=== PATIENT | female | born 1990 ===

== ENCOUNTER 2019-04-26 07:55 | Inpatient (IN) | payer OTHER | END 2019-04-28 18:50 | disposition home or self-care (01) | LOC: JLDR 07:55 → J3W 19:38 ==

== ENCOUNTER 2022-01-17 03:20 | Inpatient (IN) | payer OTHER ==
[2022-01-17] MEDS: ELECTROLYTE-148 SOLN 1,000 ML IV SCH (03:40)
[2022-01-17] MEDS ORDERED: CITRIC ACID/SODIUM CITRATE 30 ML UNIT-DOSE CUP PO ONE (05:06)
[2022-01-17] MEDS ORDERED: BENZOCAINE 28 GM HEMORRHOIDAL OINTMENT TP PRN (05:07)
[2022-01-17] MEDS ORDERED: BENZOCAINE 20% 57 GM BOTTLE TP PRN (05:07)
[2022-01-17] MEDS ORDERED: ACETAMINOPHEN 325 MG TABLET (FP) PO PRN (05:07)
[2022-01-17] MEDS ORDERED: WITCH HAZEL 50% (TUCKS) 40 PAD/JAR PAD TP PRN (05:07)
[2022-01-17] MEDS ORDERED: BISACODYL 10 MG SUPP.RECT RC PRN (05:07)
[2022-01-17] MEDS ORDERED: OXYTOCIN 20 UNITS in 0.9% NS 20 UNIT/1,000 ML INFUS.BAG IV SCH (05:15)
[2022-01-17 05:33] VITALS: BMI 33.3
[2022-01-17] MEDS ORDERED: IBUPROFEN 600 MG TABLET (FP) PO ONE (05:47)
[2022-01-17] MEDS: IBUPROFEN 600 MG TABLET (FP) PO PRN ×2 (05:49→21:40)
[2022-01-17 06:38] LABS: HEMATOCRIT 31.6 % (32.4-45.2); HEMOGLOBIN 10.7 GM/dL (10.7-15.3); MCH 31.8 pg (25.7-33.7); MCHC 33.9 g/dl (32.0-36.0); MEAN CELL VOLUME 93.7 fl (80-96); MEAN PLT VOLUME 9.1 fl (7.5-11.1); PLATELET COUNT 278 10^3/uL (134-434); RBC 3.37 M/mm3 (3.60-5.2); RDW 13.7 % (11.6-15.6); WHITE BLOOD COUNT 10.4 K/mm3 (4.0-10.0)
[2022-01-17 06:44] LABS: BLOOD UREA NITROGEN 11.2 mg/dL (7-18); CALCIUM 8.2 mg/dL (8.5-10.1)
[2022-01-17 06:47] LABS: INR 0.89 (0.83-1.09); PROTHROMBIN TIME (PATIENT) 10.2 SEC (9.7-13.0)
[2022-01-17 06:48] LABS: CREATININE 0.7 mg/dL (0.55-1.3)
[2022-01-17 06:49] LABS: ACTIVATED PTT 28.2 SECONDS (25.2-36.5)
[2022-01-17 07:01] LABS: CORD HCO3 21.6 mmHg (20-29); CORD PCO2 74.9 mmHg (30-78); CORD pH 7.078 (7.14-7.44)
[2022-01-17 07:02] LABS: CORD BASE EXCESS -7.1 mmol/L (0-2); CORD HCO3 22.3 mmHg (20-29); CORD PCO2 60.1 mmHg (30-78); CORD pH 7.187 (7.14-7.44)
[2022-01-18] MEDS: IBUPROFEN 600 MG TABLET (FP) PO PRN (01:49)
[2022-01-18 08:38] LABS: BASO % 0.6 % (0-2.0); EOS % 1.8 % (0-4.5); HEMATOCRIT 28.3 % (32.4-45.2); HEMOGLOBIN 9.5 GM/dL (10.7-15.3); LYMPH % 26.4 % (8-40); MCH 31.6 pg (25.7-33.7); MCHC 33.5 g/dl (32.0-36.0); MEAN CELL VOLUME 94.4 fl (80-96); MEAN PLT VOLUME 8.8 fl (7.5-11.1); MONO % 6.2 % (3.8-10.2); PLATELET COUNT 250 10^3/uL (134-434); RDW 13.9 % (11.6-15.6)
[2022-01-18] MEDS ORDERED: DIPHTH,PERTUSS(ACELL),TET 0.5 ML DISP.SYRIN IM ONE (10:00)
[2022-01-18] MEDS: ELECTROLYTE-148 SOLN 1,000 ML IV SCH ×2 (20:08→20:09)
[2022-01-18] MEDS ORDERED: SENNOSIDES/DOCUSATE COMBO (SENNA PLUS) TABLET (UD) PO PRN (22:00)
[2022-01-19 10:02] VITALS: BP 98/65; PULSE 90; TEMP 99.9
[2022-01-19] MEDS: IBUPROFEN 600 MG TABLET (FP) PO PRN (11:50)
== END 2022-01-19 15:50 | disposition home or self-care (01) | DRG 807 ==
LOC: JLDR 03:20 → J3W 06:15
PROVIDERS: ADMIT Student in an Organized Health Care Education/Training Program; ATTEND Student in an Organized Health Care Education/Training Program
PROC: 10E0XZZ Delivery of Products of Conception, External Approach (ICD-10-PCS; principal; 2022-01-17)
PROC: 0KQM0ZZ Repair Perineum Muscle, Open Approach (ICD-10-PCS; 2022-01-17)
DX: O70.1 Second degree perineal laceration during delivery (principal); Z37.0 Single live birth; Z3A.40 40 weeks gestation of pregnancy
CPT/HCPCS: 36415; 36600; 59409; 80048; 82803; 85025; 85610; 85730; 86593; 86762; 86780; 86850; 86870; 86900; 86901; 86902; 90715; C9803-CS; U0003; U0005